=== PATIENT | male | born 1995 | race Caucasian/White ===

== ENCOUNTER 2020-05-22 10:58 | Emergency (ER) | payer BC ==
[~2020-05-22] VITALS: Ht 177.8 cm; Wt 77.3 kg
[~2020-05-22 10:58] MED LIST: AUGMENTIN 875-11 TAB PO; CIPRO HC OTIC S10 ML RIGHT EAR
[2020-05-22 11:02] VITALS: BP 126/69; Ht 177.8 cm; Wt 77.3 kg
== END 2020-05-22 12:12 | disposition home or self-care (01) ==
LOC: D.ER 10:58
DX: S43.51XA Sprain of right acromioclavicular joint, initial encounter (principal); X58.XXXA Exposure to other specified factors, initial encounter

== ENCOUNTER 2020-07-21 14:42 | Emergency (ER) | payer BC ==
[~2020-07-21] VITALS: Ht 177.8 cm; Wt 77.3 kg
[2020-07-21 14:47] VITALS: Ht 177.8 cm; Wt 77.3 kg
[2020-07-21] MEDS ORDERED: CYCLOBENZAPRINE10 MG PO (16:06)
[2020-07-21 16:38] VITALS: BP 122/80
== END 2020-07-21 16:38 | disposition home or self-care (01) ==
LOC: D.ER 14:42
DX: R51.9 Headache, unspecified (principal); M54.2 Cervicalgia